=== PATIENT | male | born 1980 | race Two or more races ===

== ENCOUNTER → 2018-09-17 17:04 | Emergency (ER) | payer OTHER ==
[~2018-09-17 17:04] MED LIST: Ibuprofen TAB* 600 MG PO ONE
--- NOTE | 2018-09-17 19:12 | ED ---
Skin Complaint - HPI Summary HPI Summary: Patient complains of pain and redness to right hand after burst of air from high -pressure hose indicated today. Patient states he was loosening the nozzle without having bled the system and a jet of high-pressure air hit him on the dorsal surface of the right hand near the web of the first and second digit. Denies any other symptoms pain or injury. Denies loss of function or sensation in right hand. - History of Current Complaint Chief Complaint: EDExtremityUpper Time Seen by Provider: 09/17/18 18:04 Stated Complaint: HAND INJURY PER PT Hx Obtained From: Patient Onset/Duration: Started Hours Ago Skin Exposure Onset/Duration: Hours Ago Timing: Constant Onset Severity: Mild Current Severity: Mild Pain Intensity: 2 Pain Scale Used: 0-10 Numeric Skin Location: Discrete Character: Pain, Redness Aggravating Symptom(s): Touch Alleviating Symptom(s): Nothing Associated Signs & Symptoms: Negative - Allergy/Home Medications Allergies/Adverse Reactions: Allergies Allergy/AdvReac Type Severity Reaction Status Date / Time No Known Allergies Allergy Verified 09/17/18 17:20 PMH/Surg Hx/FS Hx/Imm Hx Endocrine/Hematology History: Denies: Hx Diabetes Cardiovascular History: Denies: Hx Congestive Heart Failure, Hx Hypertension History: Denies: Hx Dialysis, Hx Renal Disease Sensory History: Denies: Hx Eye Prosthesis Opthamlomology History: Denies: Hx Legally Blind EENT History: Denies: Hx Deafness Psychiatric History: Denies: Hx Anxiety Infectious Disease History: No Infectious Disease History: Denies: Hx Clostridium Difficile, Hx Hepatitis, Hx Human Immunodeficiency Virus (HIV), Hx of Known/Suspected MRSA, Hx Shingles, Hx Tuberculosis, Hx Known/ Suspected VRE, Hx Known/Suspected VRSA, History Other Infectious Disease, Traveled Outside the [place] in Last 30 Days - Family History Known Family History: Positive: Unknown - Social History Alcohol Use: Rare Substance Use Type: Reports: None Smoking Status (MU): Never Smoked Tobacco Review of Systems Constitutional: Negative Eyes: Negative ENT: Negative Cardiovascular: Negative Respiratory: Negative Gastrointestinal: Negative Genitourinary: Negative Musculoskeletal: Negative Skin: Other Neurological: Negative Psychological: Normal All Other Systems Reviewed And Are Negative: Yes Physical Exam - Summary Physical Exam Summary: Abrasion with multiple petechiae looking red spots to dorsal surface of right hand. Wound appears like an abrasion, no penetration thru dermis. Some dark flecks embedded in skin which may be small scabs or small particles. PMS intact distally. Flexion and extension and supervisor litharge strength intact Triage Information Reviewed: Yes Vital Signs On Initial Exam: Initial Vitals Temp Pulse Resp BP Pulse Ox 98.1 F 68 16 146/88 98 09/17/18 17:12 09/17/18 17:12 09/17/18 17:12 09/17/18 17:12 09/17/18 17:12 Vital Signs Reviewed: Yes Appearance: Positive: Well-Appearing Skin: Positive: Warm Head/Face: Positive: Normal Head/Face Inspection Eyes: Positive: Normal Neck: Positive: Supple Respiratory/Lung Sounds: Positive: Clear to Auscultation Cardiovascular: Positive: Normal Abdomen Description: Positive: Nontender Musculoskeletal: Positive: Normal Neurological: Positive: Normal Psychiatric: Positive: Normal AVPU Assessment: Alert - [place] Coma Scale Best Eye Response: 4 - Spontaneous Best Motor Response: 6 - Obeys Commands Best Verbal Response: 5 - Oriented Coma Scale Total: 15 Diagnostics - Vital Signs Vital Signs Temp Pulse Resp BP Pulse Ox 09/17/18 17:12 98.1 F 68 16 146/88 98 - Laboratory Lab Statement: Any lab studies that have been ordered have been reviewed, and results considered in the medical decision making process. Course/Dx - Course Course Of Treatment: Patient complains of pain and redness to right hand after burst of air from high-pressure hose indicated today. Patient states he was loosening the nozzle without having bled the system and a jet of high-pressure air hit him on the dorsal surface of the right hand near the web of the first and second digit. Denies any other symptoms pain or injury. Denies loss of function or sensation in right hand. Physical exam:Abrasion with multiple petechiae looking red spots to dorsal surface of right hand. Wound appears like an abrasion, no penetration thru dermis. Some dark flecks embedded in skin which may be small scabs or small particles. PMS intact distally. Flexion and extension and supervisor litharge strength intact. Vital signs within normal limits. PMS intact. Wound scrubbed with chlorhexidine. Little black flecks removed by scrubbing and appear to be dust or some kind of very small foreign bodies. Wound cleaned. Covered with anti-biotic ointment and wrapped. Patient advised to do same. Discussed patient with orthopedics composite bond technician Dr. Palomo who stated patient could be discharged safely. Pt advised to return to the ED for worsening symptoms. - Diagnoses Provider Diagnoses: Abrasion Discharge - Sign-Out/Discharge Documenting (check all that apply): Patient Departure Patient Received Moderate/Deep Sedation with Procedure: No - Discharge Plan Condition: Stable Disposition: HOME Patient Education Materials: Abrasion (ED) Referrals: No Primary Care Phys,NOPCP [Primary Care Provider] - Additional Instructions: Take ibuprofen for pain. You may wash with warm running water and soap. Then cover with antibiotic ointment and nonstick pad and keep protected until healed. Return to the ED for any new or worsening symptoms. - Billing Disposition and Condition Condition: STABLE Disposition: Home
[2018-09-17 19:22] VITALS: BP 137/99
== END | disposition home or self-care (01) ==
LOC: ED 17:04
DX: S60.511A Abrasion of right hand, initial encounter (principal); X08.8XXA Exposure to other specified smoke, fire and flames, initial encounter; Y92.9 Unspecified place or not applicable
CPT/HCPCS: 99282; A9270-GY